=== PATIENT | female | born 1970 | race Caucasian/White ===

== ENCOUNTER 2017-04-03 09:15 | Emergency (ER) | payer BC ==
[2017-04-03] MEDS ORDERED: Adenosine 6 MG/2 ML SDV IVPUSH ONE (09:20)
[2017-04-03] MEDS ORDERED: Adenosine 6 MG/2 ML SDV ONE (09:27)
[2017-04-03] MEDS ORDERED: Adenosine 12 MG/4 ML SDV ONE (09:27)
[2017-04-03] MEDS ORDERED: Sodium Chloride 0.9% 10 ML Syringe FLUSH PRN (09:29)
[2017-04-03] MEDS ORDERED: Metoprolol Tartrate 50 MG Tab PO ONE (09:46)
--- NOTE | 2017-04-03 10:01 | EDM.PDOC ---
ED HPI GENERAL MEDICAL PROBLEM - General Chief Complaint: Cardiovascular Problem Stated Complaint: RAPID HEART RATE Time Seen by Provider: 04/03/17 09:29 Source of Information: Reports: Patient History Limitations: Reports: No Limitations - History of Present Illness INITIAL COMMENTS - FREE TEXT/NARRATIVE: The patient presents with palpitations. This started this morning when she got to work. She checked her blood pressure and it was elevated. She denies chest pain or shortness of breath. She had some nausea last night after dinner. She had a little nausea this morning. She has a history of HTN. She was on medicine for awhile and got better. She was able to get off of the medicine. She does not smoke. She has no history of thyroid disease. She has no history of high cholesterol. She says her daughter and another family member had tachycardia. She is not sure what kind it was. Her daughter did go to the [facility] for evaluation. She did not need ablation. The patient says she did have some episodes of tachycardia in the past. It did not last long. She has no fever, chills, cough, chest pain, shortness of breath or abdominal pain. She has no edema or pain in her legs. She did have some coffee this morning. Onset: Gradual Duration: Minutes: Severity: Moderate Improves with: Reports: None Worsens with: Reports: None Associated Symptoms: Denies: Confusion, Chest Pain, Cough, Fever/Chills, Headaches, Nausea/Vomiting, Shortness of Breath - Related Data Allergies Allergy/AdvReac Type Severity Reaction Status Date / Time No Known Allergies Allergy Verified 04/03/17 09:38 Home Meds: Home Meds Cholecalciferol (Vitamin D3) [Vitamin D3] 0 units PO DAILY 04/03/17 [History] Ferrous Sulfate [Iron] 325 mg PO ASDIRECTED 04/03/17 [History] Magnesium 0 mg PO DAILY 04/03/17 [History] Metoprolol Succinate 50 mg PO DAILY #30 tab.er.24h 04/03/17 [Rx] Multivitamin with Minerals [Multiple Vitamin] 1 tab PO DAILY 04/03/17 [History] [place]-3/DHA/Epa/Fish Oil [Fish Oil 1,000 mg Softgel] 2 cap PO DAILY 04/03/17 [ History] ED ROS GENERAL - Review of Systems Review Of Systems: See Below Constitutional: Reports: No Symptoms HEENT: Reports: No Symptoms Respiratory: Reports: No Symptoms Cardiovascular: Reports: Palpitations. Denies: Chest Pain Endocrine: Reports: No Symptoms GI/Abdominal: Reports: No Symptoms : Reports: No Symptoms Musculoskeletal: Reports: No Symptoms ED EXAM, GENERAL - Physical Exam Exam: See Below Exam Limited By: No Limitations General Appearance: Alert, No Apparent Distress Ears: Normal External Exam Nose: Normal Inspection Head: Atraumatic, Normocephalic Neck: Normal Inspection Respiratory/Chest: No Respiratory Distress, Lungs Clear, Normal Breath Sounds Cardiovascular: Normal Peripheral Pulses, No Edema, No Murmur, Tachycardia GI/Abdominal: Soft, Non-Tender, No Organomegaly, No Mass Back Exam: Normal Inspection Extremities: Normal Inspection Neurological: Alert, Oriented, No Motor/Sensory Deficits EKG INTERPRETATION EKG Date: 04/03/17 Time: 09:22 Rhythm: Other (SVT) Rate (Beats/Min): 158 [place]: Normal P-Wave: Present QRS: Normal ST-T: Normal QT: Normal Course - Vital Signs Last Recorded V/S: Last Vital Signs Temp 97.9 F 04/03/17 09:15 Pulse 106 H 04/03/17 10:09 Resp 20 04/03/17 09:15 BP 150/87 H 04/03/17 10:09 Pulse Ox 99 04/03/17 09:15 - Orders/Labs/Meds Orders: Active Orders 24 hr Category Date Time Status Cardiac Monitoring [RC] . DIRECTED Care 04/03/17 09:29 Active EKG Documentation Completion [RC] STAT Care 04/03/17 09:30 Active Oxygen Therapy [RC] PRN Care 04/03/17 09:29 Active Peripheral IV Care [RC] . DIRECTED Care 04/03/17 09:30 Active Chest 1V Frontal [CR] Stat Exams 04/03/17 09:30 Taken Sodium Chloride 0.9% [Saline Flush] Med 04/03/17 09:29 Active 10 ml FLUSH ASDIRECTED PRN Peripheral IV Insertion Adult [OM.PC] Stat Oth 04/03/17 09:29 Ordered Medication Orders Sodium Chloride (Saline Flush) 10 ml FLUSH ASDIRECTED PRN PRN Reason: Keep Vein Open Last Admin: 04/03/17 09:20 Dose: 10 ml Labs: Laboratory Tests 01/09/18 01/09/18 Range/Units 09:20 09:20 WBC 10.58 H (3.98-10.04) K/mm3 RBC 5.09 (3.98-5.22) M/mm3 Hgb 11.1 L (11.2-15.7) gm/L Hct 37.0 (34.1-44.9) % MCV 72.7 L (79.4-94.8) fl MCH 21.8 L (25.6-32.2) pg MCHC 30.0 L (32.2-35.5) g/dl RDW Std Deviation 44.8 (36.4-46.3) fL Plt Count 514 H (182-369) K/mm3 MPV 9.2 L (9.4-12.3) fl Neut % (Auto) 59.4 (34.0-71.1) % Lymph % (Auto) 30.9 (19.3-51.7) % [place] % (Auto) 7.6 (4.7-12.5) % Eos % (Auto) 1.0 (0.7-5.8) Baso % (Auto) 0.9 (0.1-1.2) % Neut # (Auto) 6.28 H (1.56-6.13) K/mm3 Lymph # (Auto) 3.27 (1.18-3.74) K/mm3 [place] # (Auto) 0.80 H (0.24-0.36) K/mm3 Eos # (Auto) 0.11 (0.04-0.36) K/mm3 Baso # (Auto) 0.10 H (0.01-0.08) K/mm3 Manual Slide Review Abnormal smear Sodium 140 (136-145) mEq/L Potassium 3.4 L (3.5-5.1) mEq/L Chloride 104 (98-107) mEq/L Carbon Dioxide 25 (21-32) mEq/L Anion Gap 14.4 (5-15) BUN 5 L (7-18) mg/dL Creatinine 0.7 (0.55-1.02) mg/dL Est Cr Clr Drug Dosing 101.30 mL/min Estimated GFR (MDRD) > 60 (>60) mL/min BUN/Creatinine Ratio 7.1 L (14-18) Glucose 108 H (74-106) mg/dL Calcium 9.1 (8.5-10.1) mg/dL Total Bilirubin 0.7 (0.2-1.0) mg/dL AST 19 (15-37) U/L ALT 21 (14-59) U/L Alkaline Phosphatase 67 (46-116) U/L Troponin I < 0.017 (0.00-0.056) ng/mL Total Protein 8.2 (6.4-8.2) g/dl Albumin 3.9 (3.4-5.0) g/dl Globulin 4.3 gm/dL Albumin/Globulin Ratio 0.9 L (1-2) TSH 3rd Generation 3.706 (0.358-3.74) uIU/mL Meds: Medications Generic Name Dose Route Start Last Admin Trade Name Freq PRN Reason Stop Dose Admin Sodium Chloride 10 ml 04/03/17 09:29 04/03/17 09:20 Saline Flush FLUSH 10 ml ASDIRECTED PRN Administration Keep Vein Open Discontinued Medications Generic Name Dose Route Start Last Admin Trade Name Freq PRN Reason Stop Dose Admin Adenosine Confirm 04/03/17 09:27 04/03/17 10:06 Adenocard Administered 04/03/17 09:28 Not Given Dose 18 mg .ROUTE .STK-MED ONE Adenosine Confirm 04/03/17 09:27 04/03/17 10:06 Adenocard Administered 04/03/17 09:28 Not Given Dose 12 mg .ROUTE .STK-MED ONE Adenosine 6 mg 04/03/17 09:20 04/03/17 09:26 Adenocard IVPUSH 04/03/17 09:21 6 mg NOW ONE Administration Metoprolol Tartrate 50 mg 04/03/17 09:46 04/03/17 10:09 Lopressor PO 04/03/17 09:47 50 mg ONETIME ONE Administration - Re-Assessments/Exams Free Text/Narrative Re-Assessment/Exam: 04/03/17 10:03 I ordered an IV saline lock, EKG, labs, and adenosine. The patient was in SVT. I first attempted vasovagal maneuvers but they were unsuccessful. I then gave her adenosine 6mg IV and that converted her. 04/03/17 10:43 Her CXR looks good. Her repeat EKG shows a sinus tachycardia with no acute changes. Her WBC is elevated at 10.58. Her hgb is low at 11.1. Her platelets were 514. Her K was a little low at 3.4. Her troponin is negative. Her TSH was normal. Her heart rate is below 100 now. I gave her a metoprolol here. I had my principal account clerk call and see when we can get her in to [facility]. The soonest they could get her in was May 09. I will have her follow up with one of our providers in the clinic until then. Departure - Departure Time of Disposition: 10:55 Disposition: Home, Self-Care Condition: Good Clinical Impression: SVT (supraventricular tachycardia) Prescriptions: Metoprolol Succinate 50 mg PO DAILY #30 tab.er.24h Referrals: April Ling MD [Physician] - 1 Week Hari Rome MD [Ordering Only Provider] - Forms: ED Department Discharge Additional Instructions: Take the metoprolol daily. Follow up with Dr Ling or one of her partners within 1 week. I made an appointment for May 09 at 1pm [place] time with Dr Rome. They have ordered fasting labs at 10:30am [place] time in [place]. Please return if you are worse. - My Orders Last 24 Hours: My Active Orders 04/03/17 09:29 Cardiac Monitoring [RC] . DIRECTED Oxygen Therapy [RC] PRN Sodium Chloride 0.9% [Saline Flush] 10 ml FLUSH ASDIRECTED PRN Peripheral IV Insertion Adult [OM.PC] Stat 04/03/17 09:30 EKG Documentation Completion [RC] STAT Peripheral IV Care [RC] . DIRECTED Chest 1V Frontal [CR] Stat - Assessment/Plan Last 24 Hours: My Active Orders 04/03/17 09:29 Cardiac Monitoring [RC] . DIRECTED Oxygen Therapy [RC] PRN Sodium Chloride 0.9% [Saline Flush] 10 ml FLUSH ASDIRECTED PRN Peripheral IV Insertion Adult [OM.PC] Stat 04/03/17 09:30 EKG Documentation Completion [RC] STAT Peripheral IV Care [RC] . DIRECTED Chest 1V Frontal [CR] Stat
--- NOTE | 2017-04-03 11:04 | CR ---
Chest: Frontal view of the chest was obtained. Comparison: Prior chest x-ray of 12/20/11. Heart size and mediastinum are normal. Lungs are clear. Bony structures are grossly intact. Impression: 1. Nothing acute is identified on frontal chest x-ray. Diagnostic code #1
== END 2017-04-03 11:15 | disposition home or self-care (01) ==
LOC: JD.ED 09:15
DX: I47.1 Supraventricular tachycardia (principal); Z79.899 Other long term (current) drug therapy
CPT/HCPCS: 36415; 71045; 80053; 84443; 84484; 85025; 93005; 96374; 99285; A9270; J0153; J7050; 93010